=== PATIENT | female | born 1990 | race Caucasian/White ===

== ENCOUNTER 2017-12-31 21:35 | Emergency (ER) | payer BC, MEDICAID ==
[2017-12-31] MEDS ORDERED: IBUPROFEN 600 MG TABLET PO ONE (23:27)
--- NOTE | 2017-12-31 23:37 | ER Document Report ---
ED ENT - General Chief Complaint: Sore Throat Stated Complaint: SORE THROAT Time Seen by Provider: 12/31/17 23:26 Mode of Arrival: Ambulatory Information source: Patient TRAVEL OUTSIDE OF THE [place] IN LAST 30 DAYS: No - HPI Patient complains to provider of: Throat problem Onset: This morning Notes: Patient is here with complaints of left-sided sore throat and ear pain that started this morning. She states that she woke up this morning with the symptoms. States that she has a history of seasonal allergies and is supposed to take Zyrtec, but she has not been taking her Zyrtec until this morning when she woke up with a sore throat. States that the pain is progressively gotten somewhat worse as the day is continued. She denies any fever. She denies any difficulty breathing or swelling. No nausea, vomiting, diarrhea. No abdominal pain. No chest pain or shortness of breath. No neck stiffness. She states that other people in her house have been sick as well. No one has had strep that she is aware of. - Related Data Allergies/Adverse Reactions: No Known Allergies Allergy (Verified 12/31/17 21:36) Past Medical History - Social History Smoking Status: Unknown if Ever Smoked Family History: Reviewed & Not Pertinent Review of Systems - Review of Systems -: Yes All other systems reviewed and negative Physical Exam - Vital signs Vitals: Temp Pulse Resp BP Pulse Ox 99.3 F 96 18 137/85 H 96 12/31/17 21:53 12/31/17 21:53 12/31/17 21:53 12/31/17 21:53 12/31/17 21:53 - Notes Notes: GENERAL: alert, cooperative, nontoxic, no distress. HEAD: normocephalic, atraumatic EYES: conjunctiva pink without discharge, no external redness or swelling. EARS: no external swelling, no external redness, no mastoid redness, swelling, tenderness. Ear canals are clear without swelling or drainage. TMs pearly gan , no redness, no bulging, normal landmarks, no perforation. NOSE: atraumatic, no external swelling. clear rhinorrhea noted. MOUTH/THROAT: mucous membranes moist and pink, posterior pharynx without erythema, swelling, exudate. No trismus or drooling. NECK: soft, supple, full range of motion, no meningismus. Left anterior cervical lymphadenopathy. CHEST: no distress, lungs clear and equal throughout. No wheezing, rales, rhonchi. CARDIAC: regular rate and rhythm, no murmur, normal capillary refill, normal pulses. No peripheral edema noted. BACK: full range of motion, no CVA tenderness. EXTREMITIES: full range of motion of all extremities. No redness, no swelling. NEURO: alert and oriented A&O3, no focal deficits, full range of motion of all extremities. PYSCH: appropriate mood, affect. Patient is cooperative. SKIN: pink, warm, dry, no rash. Course - Re-evaluation Re-evalutation: 01/01/18 00:28 Patient is nontoxic appearing with stable vitals. She with complaints of left- sided sore throat and ear pain. Ear exam is unremarkable. She does have a history of seasonal allergies and just started taking her Zyrtec this morning. It is likely that the sore throat is secondary to some postnasal drip. Her rapid strep was negative. I instructed her to continue taking the Zyrtec. I will discharge her home with Voltaren and Flonase. Instructions to drink plenty fluids. Follow-up if not better in the next 3-5 days, sooner for worsening pain, high fever, persistent vomiting, difficulty breathing or swelling, or for any further concerns. The patient is noted to have elevated blood pressure during today's emergency department visit. The patient was informed of this finding. The patient was instructed that this may be related to pre-hypertension and requires further evaluation with a primary care provider. The patient has no hypertensive symptoms at this time. The patient's emergency department workup and current diagnosis were explained to the patient and or family. Follow-up instructions were provided. Medications if prescribed were discussed. Instructions for when to return to the emergency department including specific worrisome symptoms were discussed with the patient and/or family. - Vital Signs Vital signs: Temp Pulse Resp BP Pulse Ox 99.3 F 96 18 137/85 H 96 12/31/17 21:53 12/31/17 21:53 12/31/17 21:53 12/31/17 21:53 12/31/17 21:53 Discharge - Discharge Clinical Impression: Sore throat, PND (post-nasal drip) Condition: Stable Disposition: HOME, SELF-CARE Instructions: Sore Throat ([facility]) Additional Instructions: Take medications as prescribed. Take Tylenol as needed for pain. Continue taking her Zyrtec. Follow-up with your doctor if not better in 3-5 days, sooner for worsening symptoms, high fever, persistent vomiting, difficulty breathing or swelling, or for any further concerns. Your blood pressure was elevated during today's visit. Have this rechecked with your doctor. Prescriptions: Diclofenac Sodium [Voltarevincent 50 Mg Tablet.] 50 mg PO BID #20 tablet. Fluticasone Propionate [Flonase Nasal Jackson 50 Mcg/Jackson 16 gm] 1 spray NASL Q12 #1 inhaler Referrals: OMAR OWEN MD [Primary Care Provider] - Follow up as needed
[2018-01-01 00:53] VITALS: BP 124/83
== END 2018-01-01 00:53 | disposition home or self-care (01) ==
LOC: ER 21:35
DX: J02.9 Acute pharyngitis, unspecified (principal); J30.2 Other seasonal allergic rhinitis; T45.0X6A Underdosing of antiallergic and antiemetic drugs, initial encounter; Z91.128 Patient's intentional underdosing of medication regimen for other reason; Z91.14 Patient's other noncompliance with medication regimen; H92.01 Otalgia, right ear; R09.82 Postnasal drip; R03.0 Elevated blood-pressure reading, without diagnosis of hypertension
CPT/HCPCS: 87070; 87077; 87880; 99283

== ENCOUNTER 2018-01-02 11:08 | Emergency (ER) | payer BC ==
[2018-01-02] MEDS ORDERED: DEXAMETHASONE SOD PHOSPHATE INJ 4 MG/1 ML VIAL IV ONE (11:41)
[2018-01-02] MEDS ORDERED: FENTANYL CITRATE INJ/PF 100 MCG/2 ML AMPUL IV ONE ×2 (11:41→21:54)
--- NOTE | 2018-01-02 11:45 | ER Document Report ---
ED Medical Screen (RME) - General Chief Complaint: Sore Throat Stated Complaint: THROAT SWELLING Time Seen by Provider: 01/02/18 11:41 Notes: RAPID MEDICAL EVALUATION DISCLOSURE I have seen this patient as part of a Rapid Medical Evaluation and, if applicable, placed any initially appropriate orders. The patient will be seen and fully evaluated, including a full history and physical exam, by a provider ( in Main ED or Fast Track) when a room becomes available. 27-year-old female seen yesterday for sore throat left-sided neck and ear pain and prescribed amoxicillin sent here from her PCP for possible peritonsillar abscess. The patient states that the symptoms have persisted and worsened. She is now having difficulty tolerating her secretions and states that she has to spit them out. She is now unable to swallow the amoxicillin pills. She reports that her strep test was negative and, at her PCP office, they also repeated the strep but also performed influenza and both were negative. EXAM Mild to moderate oropharyngeal erythema There is some mild bulging in the left peritonsillar region Regular rhythm, minimally tachycardic TRAVEL OUTSIDE OF THE [place] IN LAST 30 DAYS: No - Related Data Allergies/Adverse Reactions: No Known Allergies Allergy (Verified 01/02/18 11:40) Past Medical History - Social History Chew tobacco use (# tins/day): No Frequency of alcohol use: Occasional Drug Abuse: None Renal/ Medical History: Denies: Hx Peritoneal Dialysis Physical Exam - Vital signs Vitals: Temp Pulse Resp BP Pulse Ox 98.7 F 90 20 127/84 H 95 01/02/18 11:17 01/02/18 11:17 01/02/18 11:17 01/02/18 11:17 01/02/18 11:17 Course - Vital Signs Vital signs: Temp Pulse Resp BP Pulse Ox 98.7 F 90 20 127/84 H 95 01/02/18 11:17 01/02/18 11:17 01/02/18 11:17 01/02/18 11:17 01/02/18 11:17
[2018-01-02 12:53] LABS: ABSOLUTE BASOPHILS # (AUTO) 0.1 10^3/uL (0.0-0.2); ABSOLUTE EOSINOPHILS # (AUTO) 0.1 10^3/uL (0.0-0.6); ABSOLUTE LYMPHOCYTES (AUTO) 1.7 10^3/uL (0.5-4.7); ABSOLUTE MONOCYTES (AUTO) 1.4 10^3/uL (0.1-1.4); ABSOLUTE NEUT (AUTO) 13.4 10^3/uL (1.7-8.2); BASOPHILS % (AUTO) 0.4 % (0-2); EOSINOPHILS % (AUTO) 0.7 % (0-6); HEMATOCRIT 42.1 % (36.0-47.0); LYMPHOCYTES % (AUTO) 10.1 % (13-45); MEAN CORPUSCULAR HEMOGLOBIN 32.6 pg (27.0-33.4); MEAN CORPUSCULAR HGB CONC 33.3 g/dL (32.0-36.0); MEAN CORPUSCULAR VOLUME 98 fl (80-97); MONOCYTES % (AUTO) 8.4 % (3-13); PLATELET COUNT 228 10^3/uL (150-450); RED BLOOD COUNT 4.29 10^6/uL (3.72-5.28); RED CELL DISTRIBUTION WIDTH 12.5 % (11.5-14.0); SEGMENTED NEUTROPHILS % (AUTO) 80.4 % (42-78); TOTAL CELLS COUNTED % (AUTO) 100 %; WHITE BLOOD COUNT 16.6 10^3/uL (4.0-10.5)
[2018-01-02 12:59] LABS: ANION GAP 13 (5-19); BLOOD UREA NITROGEN 16 mg/dL (7-20); CALCIUM 9.6 mg/dL (8.4-10.2); CARBON DIOXIDE 28 mmol/L (22-30); CHLORIDE 104 mmol/L (98-107); GLUCOSE 91 mg/dL (75-110); SODIUM 145.3 mmol/L (137-145)
--- NOTE | 2018-01-02 14:02 | ER Document Report ---
Addendum entered and electronically signed by VERÓNICA TAYLRO MD 01/02/18 23: 16: Course - Re-evaluation Re-evalutation: 01/02/18 23:15 Dr. Thomas (ENT) called back to see the patient was denied. He recommends continuing the clindamycin and q8 hour Decadron. Recommends continue to monitor for improvement of symptoms. Still awaiting a bed. 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 She continues to protect her airway and is asking for pain medications. Toradol and fentanyl provided to the patient. Awaiting bed assignment at transfer hospital. - Vital Signs Vital signs: Temp Pulse Resp BP Pulse Ox 98.2 F 80 16 117/72 97 01/02/18 19:59 01/02/18 19:59 01/02/18 19:59 01/02/18 19:59 01/02/18 19:59 - Laboratory Result Diagrams: 01/02/18 12:13 01/02/18 12:13 Laboratory results interpreted by me: 01/02/18 01/02/18 12:13 12:13 WBC 16.6 H MCV 98 H Seg Neutrophils % 80.4 H Lymphocytes % 10.1 L Absolute Neutrophils 13.4 H Sodium 145.3 H Original Note: ED General - General Mode of Arrival: Ambulatory Information source: Patient TRAVEL OUTSIDE OF THE [place] IN LAST 30 DAYS: No <KIM HERNANDEZ - Last Filed: 01/02/18 15:56> <LEIA RAJAN - Last Filed: 01/02/18 16:20> <VERÓNICA TAYLOR - Last Filed: 01/02/18 23:15> <DON STEIN - Last Filed: 01/03/18 00:51> - General Chief Complaint: Sore Throat Stated Complaint: THROAT SWELLING Time Seen by Provider: 01/02/18 11:41 Notes: Patient is a 27 year old female with a history of hypertension presents to the emergency department complaining of multiple symptoms including a sore throat, left sided neck pain and ear pain with associated symptoms of difficulty swallowing and diaphoresis onset 2 days ago. Patient was seen in the emergency department 2 days ago and discharged with a prescription of Voltaren and Flonase. Patient states she went to urgent care yesterday due to the same symptoms and prescribed Amoxicilin. She further states she then went to urgent care again today due to her symptoms persisting and a new onset of her throat swelling due to inability to swallow Amoxicillin. Patient also states she is unable to swallow her saliva. Patient was then directed to come to the emergency department due to a concern of a peritonsillar abscess. (KIM HERNANDEZ) - Related Data Allergies/Adverse Reactions: No Known Allergies Allergy (Verified 01/02/18 11:40) Past Medical History - General Information source: Patient - Social History Smoking Status: Current Every Day Smoker Chew tobacco use (# tins/day): No Frequency of alcohol use: Occasional Drug Abuse: None Family History: Reviewed & Not Pertinent Patient has suicidal ideation: No Patient has homicidal ideation: No <KIM HERNANDEZ - Last Filed: 01/02/18 15:56> Review of Systems - Review of Systems Constitutional: See HPI, Diaphoresis EENT: See HPI, Throat swelling Cardiovascular: No symptoms reported Respiratory: No symptoms reported Gastrointestinal: No symptoms reported Genitourinary: No symptoms reported Female Genitourinary: No symptoms reported Musculoskeletal: See HPI, Neck pain Skin: No symptoms reported Hematologic/Lymphatic: No symptoms reported Neurological/Psychological: No symptoms reported -: Yes All other systems reviewed and negative <KIM HERNANDEZ - Last Filed: 01/02/18 15:56> Physical Exam <KIM HERNANDEZ - Last Filed: 01/02/18 15:56> <LEIA RAJAN - Last Filed: 01/02/18 16:20> <VERÓNICA TAYLOR - Last Filed: 01/02/18 23:15> <DON STEIN - Last Filed: 01/03/18 00:51> - Vital signs Vitals: Temp Pulse Resp BP Pulse Ox 98.7 F 90 20 127/84 H 95 01/02/18 11:17 01/02/18 11:17 01/02/18 11:17 01/02/18 11:17 01/02/18 11:17 - Notes Notes: GENERAL: Alert, interacts well. No acute distress. HEAD: Normocephalic, atraumatic. EYES: Pupils equal, round, and reactive to light. Extraocular movements intact. ENT: Left-sided peritonsillar fullness and swelling, no erythema no exudate. Oral mucosa moist, tongue midline. Nares patent, no nasal septal hematoma, TM's intacts. NECK:Anterior cervical lymphadenopathy on the left side which is also tender to palpation. Full range of motion. Supple. Trachea midline. LUNGS: Clear to auscultation bilaterally, no wheezes, rales, or rhonchi. No respiratory distress. HEART: Regular rate and rhythm. No murmurs, gallops, or rubs. EXTREMITIES: Moves all 4 extremities spontaneously. NEUROLOGICAL: Alert and oriented x3. Normal speech. PSYCH: Normal affect, normal mood. SKIN: Warm, dry, normal turgor. No rashes or lesions noted. (KIM HERNANDEZ) Course - Laboratory Result Diagrams: 01/02/18 12:13 01/02/18 12:13 <KIM HERNANDEZ - Last Filed: 01/02/18 15:56> - Laboratory Result Diagrams: 01/02/18 12:13 01/02/18 12:13 <LEIA RAJAN - Last Filed: 01/02/18 16:20> <VERÓNICA TAYLOR - Last Filed: 01/02/18 23:15> - Laboratory Result Diagrams: 01/02/18 12:13 01/02/18 12:13 <DON STEIN - Last Filed: 01/03/18 00:51> - Re-evaluation Re-evalutation: 01/02/18 15:09 CBC shows increasing leukocytosis though this may be due to steroids, chemistries unremarkable, test negative, CT of the soft tissue of the neck was ordered because I am worried about possible retropharyngeal abscess, it shows that the left-sided pharyngeal tonsil is enlarged 3 cm x 2 cm x 3.3 cm , there is a hypodensity within the tonsil itself which is 9 x 5 mm which may represent a small intratonsillar abscess but is uncertain, there is an inflammatory phlegmon along the left parapharyngeal space without well- circumscribed parapharyngeal abscess, mild airway narrowing in the oropharynx, mild asymmetric thickening of the left area epiglottic fold in the supraglottic larynx with partial effacement of the left piriform recess supraglottic larynx. We do not have ear nose and throat director rehabilitation program today. Our hospitalist does not feel comfortable admitting this case which may potentially become surgical or develop significant airway compromise without ENT director rehabilitation program as a backup. I have called [facility] to discuss the case with their ear nose and throat physicians. IV antibiotics will be started. 01/02/18 15:[address] Donny Thomas the ENT director rehabilitation program at [facility], agrees to consult on the patient. Agrees that if there is no significant abscess at this time she may resolve with IV antibiotics and steroids. Agrees that the patient will need ear nose and throat follow-up. Recommends admission to the hospitalist at [facility] with him consulting. 01/02/18 16:[address] Dorcas Petit who is the family practice resident on today at [facility], states she will discuss the case with her attending and call me back. 01/02/18 16:[address] Kp Rodrigues agrees to accept this patient to their service. ( LEIA RAJAN) 01/03/18 00:51 Transport team is scheduled to be here in 10 minutes. Patient looks very well and she says she feels improved. She has full range of motion of her neck. She has no signs of airway compromise. She has no swelling in the posterior pharynx at this time on reevaluation. Patient is medically stable for transport. Dictation of this chart was performed using voice recognition software; therefore, there may be some unintended grammatical errors. (DON STEIN) - Vital Signs Vital signs: Temp Pulse Resp BP Pulse Ox 98.2 F 79 16 121/83 99 01/03/18 00:15 01/03/18 00:15 01/03/18 00:15 01/03/18 00:15 01/03/18 00:15 - Laboratory Laboratory results interpreted by me: 01/02/18 01/02/18 12:13 12:13 WBC 16.6 H MCV 98 H Seg Neutrophils % 80.4 H Lymphocytes % 10.1 L Absolute Neutrophils 13.4 H Sodium 145.3 H Discharge <KIM HERNANDEZ - Last Filed: 01/02/18 15:56> <LEIA RAJAN - Last Filed: 01/02/18 16:20> <VERÓNICA TAYLOR - Last Filed: 01/02/18 23:15> <DON STEIN - Last Filed: 01/03/18 00:51> - Discharge Clinical Impression: Phlegmon Pharyngitis Qualifiers: Pharyngitis/tonsillitis etiology: unspecified etiology Qualified Code(s): J02.9 - Acute pharyngitis, unspecified Acute tonsillitis Qualifiers: Pharyngitis/tonsillitis etiology: unspecified etiology Qualified Code(s): J03.90 - Acute tonsillitis, unspecified Condition: Stable Disposition: [facility] Scribe Attestation: 01/02/18 16:18 I personally performed the services described in the documentation, reviewed and edited the documentation which was dictated to the scribe in my presence, and it accurately records my words and actions. (LEIA RAJAN) Scribe Documentation - Scribe Written by Joao:: Joao Venegas, 01/02/2018 14:31 acting as scribe for :: Get <KIM HERNANDEZ - Last Filed: 01/02/18 15:56>
--- NOTE | 2018-01-02 14:12 | RADIOLOGY REPORT (SQ) ---
EXAM DESCRIPTION: CT SOFT TISSUE NECK WITH COMPLETED DATE/TIME: 01/02/2018 1:49 pm REASON FOR STUDY: swelling, possible POINTER HELPER or RPA enlarged left pharyngeal tonsil COMPARISON: None. TECHNIQUE: Post IV contrasted scanning from skull base through lung apices with review of bone, soft tissue and lung windows. Reconstructed coronal and sagittal MPR images reviewed. All images stored on PACS. All CT scanners at this facility use dose modulation, iterative reconstruction, and/or weight based d osing when appropriate to reduce radiation dose to as low as reasonably achievable (ALARA). [facility]: Dose Right [facility]: CareDose [facility]: Dose Right [facility]: Teradose 4D [facility]: Vidcaster CONTRAST TYPE AND DOSE: contrast/concentration: Isovue 370.00 mg/ml; Total Contrast Delivered: 75.0 ml; Total Saline Delivered: 55.1 ml RENAL FUNCTION: Creatinine 0.64 RADIATION DOSE: CT Rad equipment meets quality standard of care and radiation dose reduction techniq ues were employed. CTDIvol: 10.3 mGy. DLP: 290 mGy-cm. . LIMITATIONS: None. FINDINGS: The left-sided pharyngeal tonsil is enlarged, 3 cm AP x 2 cm transverse by 3.3 cm cranioca udad. On axial image 30, a hypodensity within the tonsil itself 9 x 5 mm in size is present, this may repre sent a small intra tonsillar abscess. There is inflammatory phlegmon along the left parapharyngeal space without well-circumscribed parapha ryngeal abscess. Mild airway narrowing in the oropharynx. Mild asymmetric thickening of the left ar yepiglottic fold in the supraglottic larynx, with partial effacement of the left piriform recess supr aglottic larynx. 1.8 x 1.3 cm left jugulodigastric lymph node, likely reactive. SKULL BASE: Inferior brain parenchyma in the field of view is unremarkable. MAJOR SALIVARY GLANDS: No solid or cystic masses. No inflammatory changes. LYMPHADENOPATHY: Left jugulodigastric 1.8 x 1.3 cm lymph node likely reactive MUCOSAL MASSES OR ASYMMETRY: As above LARYNX/CORDS: As above VASCULAR STRUCTURES: The major vessels are patent. LUNG APICES: Clear. BONES: Intact. THYROID: Normal size. 1 cm water density cyst right posterior midpole thyroid of doubtful significan ce PARANASAL SINUSES: Clear. OTHER: No other significant finding. IMPRESSION: Enlarged pharyngeal tonsil with hypodensity contained within the tonsil itself, 9 x 5 mm in size likely a small intra tonsillar abscess. Para pharyngeal inflammatory phlegmon without parapharyngeal abscess. Mild swelling left aryepiglott ic fold and partial effacement left piriform recess. TECHNICAL DOCUMENTATION: JOB ID: [id number] Quality ID # [id number]: Final reports with documentation of one or more dose reduction techniques (e.g., Au tomated exposure control, adjustment of the mA and/or kV according to patient size, use of iterative reconstruction technique) 2010 [employer]- All Rights Reserved Reading location - IP/workstation name: [email or web address]
[2018-01-02] MEDS ORDERED: CLINDAMYCIN 600 MG/D5W RTU 600 MG/50 ML RTUPB IV ONE (15:11)
[2018-01-02] MEDS ORDERED: CLINDAMYCIN 900 MG/D5W RTU 50 ML IV SCH (20:00)
[2018-01-02] MEDS ORDERED: KETOROLAC TROMETHAMINE INJ/PF 30 MG/1 ML SDV IV ONE (21:54)
[2018-01-02] MEDS ORDERED: DEXAMETHASONE SOD PHOS INJ 10 MG/1 ML VIAL IV SCH (23:15)
[2018-01-02] MEDS ORDERED: DEXAMETHASONE SOD PHOS INJ 10 MG/1 ML VIAL IV ONE (23:30)
[2018-01-03 01:07] VITALS: BP 127/76
[2018-01-03] MEDS ORDERED: DEXAMETHASONE SOD PHOS INJ 10 MG/1 ML VIAL IV SCH (06:00)
== END 2018-01-03 01:05 | disposition short-term general hospital (02) ==
LOC: ER 11:08
DX: J36 Peritonsillar abscess (principal); M54.2 Cervicalgia; H92.09 Otalgia, unspecified ear; R61 Generalized hyperhidrosis; F17.200 Nicotine dependence, unspecified, uncomplicated
CPT/HCPCS: 96376; 99285; 96375; 96365; 96366; 36415; 87040; 84703; 85025; 86308; 80048; 70491; J1100 ×2; J3010; J1885